=== PATIENT | female | born 1990 | race Caucasian/White ===

== ENCOUNTER 2016-09-01 11:02 | Emergency (ER) ==
[2016-09-01 11:09] VITALS: BP 130/93; TEMP 98.2; BMI 47.2
[2016-09-01 11:48] LABS: BILIRUBIN,URINE Negative (NEGATIVE); KETONES,URINE Negative (NEGATIVE); LEUKOCYTE ESTERASE ,URINE 1+ (NEGATIVE); NITRITE,URINE Negative (NEGATIVE); PROTEIN,URINE Negative (NEGATIVE); URINE, BLOOD Trace-intact (NEGATIVE)
[2016-09-01 11:49] LABS: BASOPHILS % (AUTO) 0.3 % (0.0-3.0); EOSINOPHILS # (AUTO) 0.3 K/ul (0.0-0.7); EOSINOPHILS % (AUTO) 3.4 % (0.0-7.0); HEMATOCRIT 43.3 % (37.0-47.0); HEMOGLOBIN 14.9 g/dl (12.0-16.0); IMMATURE GRANULOCYTE % (AUTO) 0.3 % (0.0-5.0); LYMPHOCYTES # (AUTO) 3.5 K/uL (0.60-3.4); LYMPHOCYTES % (AUTO) 37.6 (10.0-50.0); MEAN CORPUSCULAR HEMOGLOBIN 29.7 pg (27.0-31.0); MEAN CORPUSCULAR HGB CONC 34.4 (31.8-35.4); MEAN CORPUSCULAR VOLUME 86.3 fl (81.0-99.0); MONOCYTES # (AUTO) 0.4 K/uL (0.4-2.0); MONOCYTES % (AUTO) 4.2 (0-10); NEUTROPHILS % (AUTO) 54.2; PLATELET COUNT 238 10^3/uL (140-440); RED BLOOD COUNT 5.02 10^6/ul (4.20-5.40); WHITE BLOOD COUNT 9.31 K/ul (4.6-10.2)
[2016-09-01 11:50] LABS: URINE PREGNANCY INTERNAL QC INTERNAL QC VALID
[2016-09-01 11:57] LABS: ADD URINE MICROSCOPIC YES
[2016-09-01 12:00] LABS: FLU INTERNAL QC INTERNAL QC VALID; RAPID FLU A NEGATIVE (NEGATIVE); RAPID FLU B NEGATIVE (NEGATIVE)
[2016-09-01 12:02] LABS: BACTERIA,URINE 3+ (NOT PRESENT)
--- NOTE | 2016-09-01 12:17 | DI ---
EXAM: Chest two view, frontal and lateral views. HISTORY: Cough. COMPARISON: 03/27/2016. FINDINGS: The heart size is normal. There is no pulmonary vascular congestion. The lungs are sabrina r. No pleural effusion or pneumothorax is seen. No acute osseous abnormality identified. Since prior study, there has been no significant interval change. IMPRESSION: No acute cardiopulmonary process.
--- NOTE | 2016-09-01 12:26 | CT ---
EXAM: CT head without contrast HISTORY: Dizziness with congestion COMPARISON: CT head 08/23/2014, 03/20/2014 and MRI brain 03/26/2014 TECHNIQUE: Serial axial images of the brain were obtained from the skull base to the vertex without IV contrast. FINDINGS: The ventricles, cisterns and sulci are normal. There is persistent low lying cerebellar t onsils present stable since 2013. The ruiz-white matter junction is well maintained. No midline vickie ft or mass is identified. There is no abnormal intra or extra-axial fluid collection. The paranasa l sinuses demonstrate layering low attenuation material in the left maxillary sinus. The mastoid ai r cells demonstrate minimal fluid in the dependent right mastoid air cells. IMPRESSION: 1. No acute intracranial abnormality or hemorrhage. 2. No change in low lying cerebellar tonsils, stable since 2013. 3. Minimal left maxillary sinus disease and minimal fluid in the right mastoid air cells.
[2016-09-01 12:28] LABS: ALANINE AMINOTRANSFERASE 13 U/L (12-78); ALBUMIN 3.6 g/dL (3.4-5.0); ALBUMIN/GLOBULIN RATIO 1.03; ALKALINE PHOSPHATASE 69 U/L (42-98); ANION GAP 11.9; ASPARTATE AMINO TRANSFERASE 14 U/L (15-37); BILIRUBIN,TOTAL 0.62 mg/dL (0.00-1.20); BLOOD UREA NITROGEN 14 mg/dL (7-18); BUN/CREATININE RATIO 18.18; CALCIUM 8.9 mg/dL (8.2-10.2); CARBON DIOXIDE 26 mmol/L (21-32); CHLORIDE 106 mmol/L (98-107); CREATINE KINASE 82 U/L; CREATININE 0.77 mg/dL (0.60-1.30); GLUCOSE 84 mg/dL (70-110); POTASSIUM 3.9 mmol/L (3.5-5.10); SODIUM 140 mmol/L (136-145); TOTAL PROTEIN 7.1 g/dL (6.4-8.2)
--- NOTE | 2016-09-01 12:38 | US ---
EXAM: Carotid ultrasound HISTORY: Dizzy COMPARISON: None TECHNIQUE: Carotid ultrasound was performed using ruiz scale, color, and Doppler imaging was perfor med. FINDINGS: Right carotid: There is minimal intimal thickening without significant visualized area of narrowing . Peak systolic velocity measurement in the right internal carotid artery is 0.7 meters per second. End-diastolic velocity measurement in the right internal carotid artery is 0.3 meters per second. Right internal to common carotid artery peak systolic velocity ratio is 1.0. Flow in the right uche tebral artery is antegrade. Left carotid: There is minimal intimal thickening without significant visualized area of atheroscle rotic narrowing. Peak systolic velocity measurement in the left internal carotid artery is 0.6 mete rs per second. End-diastolic velocity measurement in the left internal carotid artery is 0.3 meters per second. Left internal to common carotid artery peak systolic velocity ratio measures 0.8. Angel w in the left vertebral artery is antegrade. IMPRESSION: 1. Right internal carotid: No hemodynamically significant stenosis 2. Left internal carotid: No hemodynamically significant stenosis
[2016-09-01] MEDS ORDERED: LIDOCAINE 1 % AMP 5 ML (SUTURES) IM STA (12:48)
[2016-09-01] MEDS ORDERED: ROCEPHIN IM STA (12:48)
--- NOTE | 2016-09-01 13:01 | ED.PDOC ---
General ED Provider: Dr. MARBIN KENNEDY Chief Complaint: Dizziness Stated Complaint: dizziness Time Seen by Physician: 11:00 (no head injury seen with tashi at all times ) Mode of Arrival: Walk-In Information Source: Patient Exam Limitations: No limitations Primary Care Provider: AIDA MARS Nursing and Triage Documentation Reviewed and Agree: Yes (no neuro deficits ) Neurological Complaint Exam - Dizziness Complaint/Exam Last Known Well: 2 days old Onset: Gradual Symptoms Are: Still present Timing: Intermittent Initial Severity: Mild Current Severity: Mild Character: Reports: Lightheaded, Dizzy Aggravating: Reports: None Alleviating: Reports: None Associated Signs and Symptoms: Denies: Nausea, Vomiting, Diaphoresis, Tinnitus, Chest pain, Short of air, Palpitations, Unsteady gait, GI blood loss, Visual changes, Decreased oral intake, Change in medication, Change in diet, OTC meds, Loss of balance Cardiac Risk Factors: Reports: None CVA Risk Factors: Reports: None Related Surgical History: Reports: None JVD Present: No Carotid Bruit Present: No Rectal Heme Positive: No Glascow Coma Scale (see protocol): 15 Nystagmus Present: No Gag Reflex Present: No Meningeal Signs Positive: No Focal Weakness: Present: None Focal Sensory Loss: Present: None Gait: Normal Babinski Sign: Negative Right, Negative Left Heel to Toe Normal: No [place]-Hallpike Test Positive: No Differential Diagnoses: Anxiety, Dysrhythmia, Hyperventilation, Hypovolemia, Metabolic abnormalities, Vasovagal reaction Quality Indicators for Cardiac Chest Pain: EKG in 10min. Quality Indicators for AMI: EKG in 10min. Quality Indicator For Non-Traumatic Chest Pain/Syncope: EKG Performed Review of Systems - Review Of Systems Constitutional: Reports: Malaise, Weakness Eyes: Reports: No symptoms Ears, Nose, Mouth, Throat: Reports: No symptoms Respiratory: Reports: No symptoms Cardiac: Reports: No symptoms GI: Reports: No symptoms : Reports: No symptoms Musculoskeletal: Reports: No symptoms Skin: Reports: No symptoms Neurological: Reports: Other (vertigo postional) Endocrine: Reports: No symptoms Hematologic/Lymphatic: Reports: No symptoms All Other Systems: Reviewed and Negative Past Medical History - Past Medical History Endocrine: Reports: None Cardiovascular: Reports: None Respiratory: Reports: Asthma Hematological: Reports: None Gastrointestinal: Reports: None Genitourinary: Reports: None Neuro/Psych: Reports: None Musculoskeletal: Reports: Back Pain Cancer: Reports: None Last Menstrual Period: 6 yrs ago Other Pertinent Past Medical History: lmp 6 yrs- one menstrual period in life is on implant 1MC followed by one p - Surgical History General Surgical History: Reports: , Appendectomy, Other (PE TUBES) - Family History Family History: Reports: Other - Social History Smoking Status: Never smoker Hx Substance Use: No Alcohol Screening: Occasionally Physical Exam - Physical Exam Appearance: Well-appearing, No pain distress, Well-nourished Eyes: WENDY, EOMI, Conjunctiva clear ENT: Ears normal, Nose normal, Oropharynx normal Respiratory: Airway patent, Breath sounds clear, Breath sounds equal, Respirations nonlabored Cardiovascular: RRR, Pulses normal, No rub, No murmur GI/: Soft, Nontender, No masses, Bowel sounds normal, No Organomegaly Musculoskeletal: Normal strength, ROM intact, No edema, No calf tenderness Skin: Warm, Dry, Normal color Neurological: Sensation intact, Motor intact, Reflexes intact, Cranial nerves intact, Alert, Oriented Psychiatric: Affect appropriate, Mood appropriate Interpretation - Radiology Interpretation Radiology Interpretation By: Radiologist Radiology Results: No acute changes Critical Care Note - Critical Care Note Total Time (mins): 0 Course - Course Hematology/Chemistry: 09/01/16 11:45 09/01/16 11:45 Orders, Labs, Meds: Lab Review 09/01/16 09/01/16 09/01/16 11:25 11:30 11:45 WBC 9.31 RBC 5.02 Hgb 14.9 Hct 43.3 MCV 86.3 MCH 29.7 MCHC 34.4 RDW Coeff of Tatiana 12.9 Plt Count 238 Immature Gran % (Auto) 0.3 Neut % (Auto) 54.2 Lymph % (Auto) 37.6 Boyd % (Auto) 4.2 Eos % (Auto) 3.4 Baso % (Auto) 0.3 Immature Gran # (Auto) 0.0 Neut # 5.0 Lymph # 3.5 H Boyd # 0.4 Eos # 0.3 Baso # 0.0 D-Dimer 0.43 Sodium 140 Potassium 3.9 Chloride 106 Carbon Dioxide 26 Anion Gap 11.9 BUN 14 Creatinine 0.77 Estimated GFR (MDRD) 89.00 BUN/Creatinine Ratio 18.18 Glucose 84 Calcium 8.9 Total Bilirubin 0.62 AST 14 L ALT 13 Alkaline Phosphatase 69 Total Creatine Kinase 82 Troponin I < 0.0100 Total Protein 7.1 Albumin 3.6 Globulin 3.5 Albumin/Globulin Ratio 1.03 TSH 0.904 Free T4 1.04 Urine Color Yellow Urine Clarity Slightly Urine pH 6.0 Ur Specific [place] 1.020 Urine Protein Negative Urine Glucose (UA) Negative Urine Ketones Negative Urine Blood Trace-intact Urine Nitrite Negative Urine Bilirubin Negative Urine Urobilinogen 0.2 Ur Leukocyte Esterase 1+ Urine Microscopic WBC 5-10 Ur Squamous Epith Cells Tntc Amorphous Sediment 1+ Urine Bacteria 3+ Urine Test Negative Influenza A (Rapid) Negative Influenza B (Rapid) Negative Orders Category Date Time Status EKG-(ED ONLY) Stat CARDIO 09/01/16 11:25 Completed BLOOD CULTURE Stat LAB 09/01/16 11:45 Received CBC W/ AUTO DIFF Stat LAB 09/01/16 11:45 Completed COMPREHENSIVE METABOLIC PANEL Stat LAB 09/01/16 11:45 Completed CREATINE KINASE Stat LAB 09/01/16 11:45 Completed D-DIMER Stat LAB 09/01/16 11:45 Completed FREE T4 (FREE THYROXINE) Stat LAB 09/01/16 11:45 Completed MOLECULAR GROUP A STREP Stat LAB 09/01/16 11:30 Results RAPID FLU A/B Stat LAB 09/01/16 11:30 Completed STREP SCREEN Stat LAB 09/01/16 11:30 Results THYROID STIMULATING HORMONE Stat LAB 09/01/16 11:45 Completed TROPONIN I Stat LAB 09/01/16 11:45 Completed URINALYSIS C & S IF INDICATED Stat LAB 09/01/16 11:25 Completed URINE CULTURE Stat LAB 09/01/16 11:25 Received URINE Stat LAB 09/01/16 11:25 Completed CHEST, 2 VIEWS PA & LAT Stat RADS 09/01/16 11:[address] HEAD W/O CONTRAST Stat RADS 09/01/16 11:25 Completed U/S DOPPLER CAROTID Stat RADS 09/01/16 11:42 Completed Vital Signs: Temp Pulse Resp BP Pulse Ox 09/01/16 11:02 98.2 F 89 20 130/93 H 97 Departure - Departure Time of Disposition: 13:01 Disposition: HOME SELF-CARE Discharge Problem: Dizziness, Lightheadedness Instructions: Vertigo (ED), Dizziness (ED), Benign Paroxysmal Positional Vertigo (ED) Condition: Good Pt referred to PMD for follow-up: No Allergies/Adverse Reactions: Allergies No Known Allergies Allergy (Verified 09/01/16 11:10) Home Medications: Ambulatory Orders Albuterol Sulfate [Ventolin Hfa] 18 gm IH 3-4XD PRN 05/09/16
== END 2016-09-01 13:19 | disposition home or self-care (01) ==
LOC: ED 11:02
DX: R42 Dizziness and giddiness (principal)
CPT/HCPCS: 36415; 80053; 81001; 81025; 82550; 84439; 84443; 84484; 85025; 85379; 87040; 87086; 87651; 87804; 87880; 93005; 93010; 99283